=== PATIENT | female | born 1990 | race Caucasian/White ===

== ENCOUNTER 2022-07-27 16:24 | Emergency (ER) | payer MEDICAID, SELFPAY ==
--- NOTE | ~2022-07-27 | CT_ITS ---
EXAMINATION: CT ANGIOGRAM OF THE CHEST WITH AND WITHOUT CONTRAST (CT PULMONARY ANGIOGRAM FOR PE) CLINICAL INFORMATION: Reason for Exam near syncope with hx PE COMPARISON: None TECHNIQUE: Prior to contrast administration, noncontrast localization images were obtained. Subsequently, multidetector volumetric imaging was performed from the thoracic inlet to below the diaphragms following the administration of 65 mL Omnipaque 350 intravenous contrast. No contrast reaction reported Sagittal, coronal, and MIP oblique sagittal reformatted images were obtained on the CT workstation, uploaded to PACS, and reviewed. This CT examination was performed using dose optimization techniques as appropriate, variously including the following: *Automated exposure control *Adjustment of mA and/or kV according to patient size (this includes techniques or standardized protocols for targeted exams where dose is matched to indication/reason for exam; i.e. extremities or head) *Use of iterative reconstruction technique Total exam dose-length product 292 mGy-cm FINDINGS: QUALITY OF STUDY/CONTRAST BOLUS: Satisfactory. PULMONARY ARTERIES: No central or segmental pulmonary emboli. THORACIC AORTA: No aneurysm or dissection. LUNG: Minimal atelectasis is noted in the lingula. Remainder of the lungs are clear. PLEURA: No pleural effusion or pneumothorax. MEDIASTINUM: Visualized portion of the thyroid gland is unremarkable. There are subcentimeter mediastinal lymph nodes within the range of normal variation. Cardiac size is within normal limits; no pericardial effusion. No evidence of septal bowing or right heart strain. CHEST WALL/AXILLA: No axillary or internal mammary lymphadenopathy. OSSEOUS STRUCTURES: No acute or suspicious osseous abnormality. UPPER ABDOMEN: Small hypodensity in the left hepatic lobe favors a cyst. No reflux of contrast into the hepatic veins to suggest elevated right heart pressures. CT/CT angio chest PE protocol IMPRESSION: No pulmonary embolus identified. VTE: negative
[2022-07-27 16:56] VITALS: BP 139/93; PULSE 87; RESP 18; TEMP 36.8; O2SAT 100; BMI 28.6
--- NOTE | 2022-07-27 16:58 | ECG_ITS ---
Test Reason : CHEST PAIN Blood Pressure : / mmHG Vent. Rate : 073 BPM Atrial Rate : 073 BPM P-R Int : 148 ms QRS Dur : 074 ms QT Int : 374 ms P-R-T Axes : 043 013 031 degrees QTc Int : 412 ms Normal sinus rhythm Normal ECG No previous ECGs available Referred By: Generic ED Physician Electronically Signed By:Yaron Eduardo
[2022-07-27 18:59] LABS: MANUAL DIFF FLAG NO
[2022-07-27 19:05] LABS: Basophils Percent Auto 0.2 % (0-2); Eosinophils Absolute Auto 0.1 X10*3/uL (0.0-0.4); Eosinophils Percent Auto 0.5 % (0-4); Hematocrit 43.9 % (37.0-47.0); Hemoglobin 15.2 g/dl (12.0-16.0); Imm Gran Abs Auto 0.05 X10*3/uL (0.00-0.03); Imm Gran Pct Auto 0.4 % (0.0-0.4); Lymphocytes Absolute Auto 4.1 X10*3/uL (1.2-4.9); Lymphocytes Percent Auto 31.4 % (20-40); Mean Corpuscular HGB Conc 34.6 g/dl (31.0-35.0); Mean Corpuscular Hemoglobin 28.9 pg (27.0-33.0); Mean Corpuscular Volume 83.5 fL (80.0-98.0); Mean Platelet Volume 9.7 fL (9.4-12.3); Monocytes Absolute Auto 0.8 X10*3/uL (0.1-1.2); Neutrophils Percent Auto 61.5 % (45-73); Platelet Count 246 X10*3/uL (160-400); Red Blood Count 5.26 X10*6/uL (4.20-5.50); Red Cell Distribution Width 12.3 % (11.0-16.0)
[2022-07-27 19:25] LABS: Alanine Aminotransferase 20 U/L (0-31); Albumin Level 4.1 g/dL (3.5-5.0); Alkaline Phosphatase 87 U/L (39-117); Anion Gap 12 (12-20); Aspartate Amino Transferase 12 U/L (5-31); Bilirubin Total 0.4 mg/dL (0.0-1.0); Blood Urea Nitrogen 7 mg/dL (9-16); Calcium 8.8 mg/dL (8.4-10.2); Carbon Dioxide 28 mmol/L (22-29); Chloride 103 mmol/L (96-108); Estimated Glomerular Filt Rate > 60; Glucose Random 88 mg/dL (60-115); Potassium 3.5 mmol/L (3.3-5.1); Sodium 139 mmol/L (135-145); Total Protein 6.7 g/dL (6.5-8.0)
[2022-07-27 23:25] VITALS: BP 135/83; PULSE 82; RESP 17; TEMP 36.8; O2SAT 98
--- NOTE | 2022-07-27 23:43 | ED.GENADULT ---
HPI - General Adult General Chief complaint: Dyspnea Stated complaint: high blood pressure, disoriented, blood clot? Time Seen by Provider: 07/27/22 23:25 Source: patient and old records reviewed History of Present Illness HPI narrative: Patient sent in from Urgent Care after presenting for near-syncope with dyspnea and headache. Patient has have 1 week worth of flu-like syndrome with fevers chills. Nausea and diarrhea. Positive cough and occasional shortness of breath. She has a history of pulmonary embolism for which she was on blood thinners for 6 months. This was approximately 5 years ago. She is not currently on blood thinners. It is unknown what precipitated her thromboembolism. Family history of thromboembolic disease in her mother. No recent travel or surgeries or injuries. Decreased p.o. intake recently. Taking adequate fluids. But she does have watery diarrhea 3 to 4 times a day. No fevers over the last few days. Related Data Previous Rx's Medication Instructions Recorded ibuprofen 800 mg tablet 800 mg PO TID PRN pain #30 tabs 07/28/22 Allergies Allergy/AdvReac Type Severity Reaction Status Date / Time Penicillins Allergy Unknown Unknown Verified 07/27/22 23:40 Review of Systems Constitutional: Comments: Recent flu-like symptoms over the past 5 days. With fevers, nausea, vomiting, diarrhea. Positive cough Cardiovascular: Comments: No chest pain or palpitations. Near syncope though Respiratory: Comments: Cough and dyspnea today Gastrointestinal: Comments: Nausea vomiting diarrhea. No abdominal pain Musculoskeletal: Comments: No leg swelling or calf tenderness Integumentary/Breasts: Comments: No rash Neurologic: Comments: General malaise and general weakness but no focal weakness Hematologic/Lymphatic: Comments: Past thromboembolic episode with pulmonary embolism in approximately 2018 [facility] Social History Social History Alcohol intake: never Smoked in Last 30 Days: Yes Use of substances other than those prescribed or required for medical reasons: No Advance Directives: No Advance Directives Information Provided: No Patient : No Physical Exam ED Vital Signs: Vital Signs - 24 hr 07/27/22 16:56 07/27/22 23:25 Temperature 98.3 F 98.2 F Pulse Rate 87 82 Respiratory Rate 18 17 Blood Pressure 139/93 H 135/83 Pulse Oximetry 100 98 Oxygen Delivery Method Room Air Room Air BMI result Body Mass Index 28.6 Const Other: Awake and alert in no acute distress with normal stable vital signs, afebrile, oxygen saturation 98% Resp Other: Bilateral expiratory wheezes with fair air entry. Cardio Other: Regular rate and rhythm without murmurs rubs or gallops GI Other: Soft nontender nondistended. Skin Other: Warm pink and dry without rash Neuro Other: No focal weakness Extrem Other: No calf tenderness or pedal edema Course Course Course Narrative: 02:19. Influenza is positive. Symptoms been going on for almost a week. She is not a candidate for Tamiflu. CT angiography shows no evidence of pulmonary embolism. Discharge home conservative therapy Medications Administered Discontinued Medications Generic Name Dose Route Start Last Admin Trade Name Freq PRN Reason Stop Dose Admin Albuterol Sulfate 2.5 mg 07/27/22 23:40 07/28/22 00:16 Albuterol Sulfate (0.083%) 2.5 Mg/3 Ml Vial.Neb INHALE 07/27/22 23:41 2.5 mg ONCE ONE Administration Sodium Chloride 1,000 mls @ 999 mls/hr 07/27/22 23:45 07/28/22 00:01 Ns IV 07/28/22 00:45 999 mls/hr .Q1H1M HEATHER Administration Iohexol 65 ml 07/28/22 01:16 07/28/22 01:17 Iohexol 350 Mg/Ml 100 Ml Infus..Btl IV 07/28/22 01:17 65 ml ONCE ONE Administration Methylprednisolone Sodium Succinate 125 mg 07/27/22 23:40 07/28/22 00:02 Methylprednisolone Sod Succ 125 Mg/2 Ml Vial IVPUSH 07/27/22 23:41 125 mg ONCE ONE Administration Ondansetron HCl 4 mg 07/27/22 23:40 07/28/22 00:02 Ondansetron Hcl 4 Mg/2 Ml Vial IVPUSH 07/27/22 23:41 4 mg ONCE ONE Administration Medical Decision Making Medical Decision Making MDM Narrative: Patient with near syncope and dyspnea with recent flu-like illness. Quite likely dehydration and fluid related. However, she has a past history of pulmonary embolism. She will need a CT angiogram to rule out recurrent PE as she is no longer on anticoagulation. Lab Data Result Diagrams: 07/27/22 18:56 07/27/22 18:56 Labs: Lab Results 07/27/22 07/27/22 07/27/22 Range/Units 18:56 18:56 23:54 WBC 13.0 H (4.8-10.8) X10*3/uL RBC 5.26 (4.20-5.50) X10*6/uL Hgb 15.2 (12.0-16.0) g/dl Hct 43.9 (37.0-47.0) % MCV 83.5 (80.0-98.0) fL MCH 28.9 (27.0-33.0) pg MCHC 34.6 (31.0-35.0) g/dl RDW 12.3 (11.0-16.0) % Plt Count 246 (160-400) X10*3/uL MPV 9.7 (9.4-12.3) fL Immature Gran % (Auto) 0.4 (0.0-0.4) % Neut % (Auto) 61.5 (45-73) % Lymph % (Auto) 31.4 (20-40) % [place] % (Auto) 6.0 (2-11) % Eos % (Auto) 0.5 (0-4) % Baso % (Auto) 0.2 (0-2) % Lymph # (Auto) 4.1 (1.2-4.9) X10*3/uL [place] # (Auto) 0.8 (0.1-1.2) X10*3/uL Eos # (Auto) 0.1 (0.0-0.4) X10*3/uL Baso # (Auto) 0.0 (0.0-0.2) X10*3/uL Abs Immat Gran (auto) 0.05 H (0.00-0.03) X10*3/uL Absolute Neuts (auto) 8.0 (2.0-8.3) x10*3/uL Absolute Nucleated RBC 0.000 (0.0-0.012) X10*3/uL Nucleated RBC % (auto) 0.0 (0.0-0.2) /100WBC PT (10.0-13.1) SEC INR (0.9-1.1) Sodium 139 (135-145) mmol/L Potassium 3.5 (3.3-5.1) mmol/L Chloride 103 (96-108) mmol/L Carbon Dioxide 28 (22-29) mmol/L Anion Gap 12 (12-20) BUN 7 L (9-16) mg/dL Creatinine 0.59 (0.5-1.4) mg/dL Estim Creat Clear Calc 140.0 Estimated GFR > 60 Random Glucose 88 (60-115) mg/dL Calcium 8.8 (8.4-10.2) mg/dL Total Bilirubin 0.4 (0.0-1.0) mg/dL AST 12 (5-31) U/L ALT 20 (0-31) U/L Alkaline Phosphatase 87 (39-117) U/L Total Protein 6.7 (6.5-8.0) g/dL Albumin 4.1 (3.5-5.0) g/dL Influenza Type A (PCR) POSITIVE A (Negative) Influenza Type B (PCR) NEGATIVE (Negative) RSV RNA Qual (PCR) NEGATIVE (Negative) SARS-CoV-2 RNA (RT-PCR) NEGATIVE (Negative) 07/28/22 Range/Units 00:05 WBC (4.8-10.8) X10*3/uL RBC (4.20-5.50) X10*6/uL Hgb (12.0-16.0) g/dl Hct (37.0-47.0) % MCV (80.0-98.0) fL MCH (27.0-33.0) pg MCHC (31.0-35.0) g/dl RDW (11.0-16.0) % Plt Count (160-400) X10*3/uL MPV (9.4-12.3) fL Immature Gran % (Auto) (0.0-0.4) % Neut % (Auto) (45-73) % Lymph % (Auto) (20-40) % [place] % (Auto) (2-11) % Eos % (Auto) (0-4) % Baso % (Auto) (0-2) % Lymph # (Auto) (1.2-4.9) X10*3/uL [place] # (Auto) (0.1-1.2) X10*3/uL Eos # (Auto) (0.0-0.4) X10*3/uL Baso # (Auto) (0.0-0.2) X10*3/uL Abs Immat Gran (auto) (0.00-0.03) X10*3/uL Absolute Neuts (auto) (2.0-8.3) x10*3/uL Absolute Nucleated RBC (0.0-0.012) X10*3/uL Nucleated RBC % (auto) (0.0-0.2) /100WBC PT 11.5 (10.0-13.1) SEC INR 1.0 (0.9-1.1) Sodium (135-145) mmol/L Potassium (3.3-5.1) mmol/L Chloride (96-108) mmol/L Carbon Dioxide (22-29) mmol/L Anion Gap (12-20) BUN (9-16) mg/dL Creatinine (0.5-1.4) mg/dL Estim Creat Clear Calc Estimated GFR Random Glucose (60-115) mg/dL Calcium (8.4-10.2) mg/dL Total Bilirubin (0.0-1.0) mg/dL AST (5-31) U/L ALT (0-31) U/L Alkaline Phosphatase (39-117) U/L Total Protein (6.5-8.0) g/dL Albumin (3.5-5.0) g/dL Influenza Type A (PCR) (Negative) Influenza Type B (PCR) (Negative) RSV RNA Qual (PCR) (Negative) SARS-CoV-2 RNA (RT-PCR) (Negative) Discharge Plan Discharge Clinical Impression: Influenza A Patient Disposition: Home, Self-Care Instructions: Influenza (ED) Prescriptions: New ibuprofen 800 mg tablet 800 mg PO TID PRN (Reason: pain) Qty: 30 0RF
[2022-07-28] MEDS: 0.9 % Sodium Chloride 1,000 ML 999 ML IV (00:01)
[2022-07-28] MEDS: ondansetron HCL 4 MG/2 ML VIAL IVPUSH (00:02)
[2022-07-28] MEDS: methylPREDNISolone Sod Succ 125 MG/2 ML VIAL IVPUSH (00:02)
[2022-07-28 00:15] LABS: Prothrombin Time 11.5 SEC (10.0-13.1)
[2022-07-28] MEDS: Albuterol Sulfate (0.083%) 2.5 MG/3 ML VIAL.NEB INHALE (00:16)
[2022-07-28 00:35] LABS: Influenza A PCR POSITIVE (Negative); Influenza B PCR NEGATIVE (Negative); Resp Syncy Virus RNA Qual PCR NEGATIVE (Negative); SARS COV2 PCR INHOUSE NEGATIVE (Negative)
[2022-07-28] MEDS: iohexoL 350 MG/ML 100 ML INFUS..BTL 65 ML IV (01:17)
== END 2022-07-28 04:05 | disposition home or self-care (01) ==
PROVIDERS: Emergency Provider Emergency Medicine; PCP Family Medicine
DX: J11.1 Influenza due to unidentified influenza virus with other respiratory manifestations (principal); R06.00 Dyspnea, unspecified; Z20.822 Contact with and (suspected) exposure to COVID-19
CPT/HCPCS: 0241U; 36415; 71275; 80053; 85025; 85610; 93005; 96374; 96375; 99285; J2405; J2930; Q9967

== ENCOUNTER 2024-05-30 14:52 | Emergency (ER) | payer MEDICAID, SELFPAY ==
--- NOTE | ~2024-05-30 | XR_ITS ---
EXAMINATION: XR CHEST 2 VIEW CLINICAL INFORMATION: Chest pain COMPARISON: None TECHNIQUE: PA and lateral views of the chest obtained. FINDINGS: The lungs are clear. There are no pleural effusions. The cardiomediastinal silhouette is normal. No rib fracture, bone lesion or pneumothorax is detected. XR/XR chest 2V IMPRESSION: No acute cardiopulmonary disease. Electronically signed by: Rodolfo Oakley MD 05/30/2024 04:15 PM EDT
--- NOTE | 2024-05-30 14:53 | ECG_ITS ---
Test Reason : cp Blood Pressure : / mmHG Vent. Rate : 119 BPM Atrial Rate : 119 BPM P-R Int : 124 ms QRS Dur : 070 ms QT Int : 302 ms P-R-T Axes : 042 001 064 degrees QTc Int : 424 ms Sinus tachycardia Possible Left atrial enlargement Left ventricular hypertrophy with repolarization abnormality ( R in aVL ) Cannot rule out Septal infarct , age undetermined Abnormal ECG When compared with ECG of 27-JUL-2022 18:52, Vent. rate has increased BY 46 BPM Minimal criteria for Septal infarct are now Present Referred By: Generic ED Physician Electronically Signed By:Yaron Eduardo
[2024-05-30 15:01] VITALS: BP 181/100; PULSE 115; RESP 20; TEMP 36.8; O2SAT 98; BMI 32.6
--- NOTE | 2024-05-30 15:01 | ED_ITS ---
HPI - General Adult General Chief complaint: Chest Pain Stated complaint: cp-high bp Time Seen by Provider: 05/30/24 16:14 Source: patient Limitations: no limitations History of Present Illness ED Provider: Carla Cerda PA-C HPI narrative: 34-year-old morbidly obese female with a history of hypertension presents with chest pain x1 day. Patient is having pain within the central chest, described as a squeezing sensation. It is nonradiating and constant. Patient has had similar episodes in the past. Pain worse with palpation of chest wall. 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 Denies associated shortness of breath, diaphoresis or nausea. Denies associated upper abdominal pain, recent cough or cold symptoms, no fevers. Related Data Previous Rx's ?Medication ?Instructions ?Recorded ibuprofen 800 mg tablet 800 mg PO TID PRN pain #30 tabs 07/28/22 Allergies Allergy/AdvReac Type Severity Reaction Status Date / Time Penicillins Allergy Unknown Unknown Verified 05/30/24 15:03 Review of Systems 2 Review of Systems: Yes all other systems are reviewed and are negative Constitutional: Constitutional: Denies fatigue and Denies fever(s) Cardiovascular: Cardiovascular: Reports chest pain and Denies dyspnea Respiratory: Respiratory: Denies cough and Denies dyspnea Gastrointestinal: Gastrointestinal: Denies abdominal pain, Denies nausea and Denies vomiting Endocrine: Endocrine: Denies fatigue PMF Past Medical History Attestation statement: The following information was validated with the patient. Social History Social History Alcohol intake: current Alcohol intake frequency: holidays/special occasions only Substance Use Type: Marijuana Physical Exam ED Vital Signs: Vital Signs - 24 hr 05/30/24 15:01 05/30/24 15:06 Temperature 98.3 F Pulse Rate 115 H Respiratory Rate 20 Blood Pressure 181/100 H 147/86 H Pulse Oximetry 98 Oxygen Delivery Method Room Air BMI result Body Mass Index 32.6 Const Other: Alert, well in appearance Orientation/consciousness: patient oriented x3 Chest Other: Pain elicited with palpation of central chest wall, no overlying deformity or erythema or ecchymosis Resp Other: Nonlabored respiration Cardio Other: Normal peripheral perfusion GI Other: Abdomen is soft, nontender nondistended no guarding Skin Other: Warm dry no rash Neuro General: patient oriented x3, no focal motor deficits and CN's II-XI intact bilaterally Psych Other: Calm cooperative Course Course Course Narrative: This is an RME: Additional HPI, ROS, PE not included below will be deferred to primary provider. RME assessment and note performed by: Bella Burroughs PA-C This is a [id number] who presents to the ER with complaints of chest pain, shakiness and elevated BP readings at home. Pt reporting pain is midsternal. Reporting dizziness at well. Reports yesterday she had chills, lightheadedness. Took tums which provided her with no relief. Has had CP on and off the last year but this has been the worst it has been. BP with smaller cuff was 181/100 > repeat 147/86 with appropriately sized cuff. Plan: Labs, CXR, EKG Medical Decision Making Medical Decision Making MDM Narrative: 34-year-old morbidly obese female with a history of hypertension presents with chest pain x1 day. Patient is having pain within the central chest, described as a squeezing sensation. It is nonradiating and constant. Patient has had similar episodes in the past. Pain worse with palpation of chest wall. 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 Denies associated shortness of breath, diaphoresis or nausea. Denies associated upper abdominal pain, recent cough or cold symptoms, no fevers. Problem: Obesity and hypertension History: Per patient I have considered the following differential diagnoses: ACS, costochondritis, chest wall strain, hypertensive urgency, hypertensive emergency Plan: Patient's exam is consistent with chest wall strain, however she does not have a concise mechanism. She does perform a good deal of heavy lifting at work. Gave her information in regard to using [id number] Tylenol and ibuprofen to manage her discomfort. ACS was considered, the patient does have a few risk factors for coronary artery disease, however this is very atypical for ACS. Screening labs including troponin EKG and chest x-ray were obtained. Thought about costochondritis, however there has been no preceding viral syndrome. Patient also was complaining that her blood pressure has been poorly controlled, however she is yet to follow up with her primary care, she states that she monitors her pressures at home. For us here in the emergency department, she is not hypertensive. She knows she needs to follow up with her primary care provider I have independently reviewed the following tests: Labs: Leukocytosis, not anemic, no electrolyte abnormality, troponin negative EKG: Sinus rhythm, no ischemic changes no ectopy Chest x-ray: No pleural effusion or pulmonary edema no pneumonia. Lab Data 05/30/24 15:16 05/30/24 15:16 Labs: Lab Results 05/30/24 05/30/24 Range/Units 15:16 15:17 WBC 11.7 H (4.8-10.8) X10*3/uL RBC 5.18 (4.20-5.50) X10*6/uL Hgb 15.3 (12.0-16.0) g/dl Hct 43.2 (37.0-47.0) % MCV 83.4 (80.0-98.0) fL MCH 29.5 (27.0-33.0) pg MCHC 35.4 H (31.0-35.0) g/dl RDW 12.5 (11.0-16.0) % Plt Count 291 (160-400) X10*3/uL MPV 9.7 (9.4-12.3) fL Immature Gran % (Auto) 0.4 (0.0-0.4) % Neut % (Auto) 69.8 (45-73) % Lymph % (Auto) 20.9 (20-40) % [place] % (Auto) 6.8 (2-11) % Eos % (Auto) 1.8 (0-4) % Baso % (Auto) 0.3 (0-2) % Lymph # (Auto) 2.5 (1.2-4.9) X10*3/uL [place] # (Auto) 0.8 (0.1-1.2) X10*3/uL Eos # (Auto) 0.2 (0.0-0.4) X10*3/uL Baso # (Auto) 0.0 (0.0-0.2) X10*3/uL Abs Immat Gran (auto) 0.05 H (0.00-0.03) X10*3/uL Absolute Neuts (auto) 8.2 (2.0-8.3) x10*3/uL Absolute Nucleated RBC 0.000 (0.0-0.012) X10*3/uL Nucleated RBC % (auto) 0.0 (0.0-0.2) /100WBC PT 11.2 (10.9-12.4) SEC INR 1.0 (0.9-1.1) Sodium 139 (135-145) mmol/L Potassium 3.6 (3.3-5.1) mmol/L Chloride 107 (96-108) mmol/L Carbon Dioxide 26 (22-29) mmol/L Anion Gap 10 L (12-20) BUN 8 L (9-16) mg/dL Creatinine 0.64 (0.5-1.4) mg/dL Estim Creat Clear Calc 135.0 Estimated GFR > 60 Random Glucose 116 H (60-115) mg/dL Calcium 9.7 D (8.4-10.2) mg/dL Magnesium 1.8 (1.6-2.6) mg/dL Total Bilirubin 0.3 (0.0-1.0) mg/dL Direct Bilirubin 0.1 (0.0-0.5) mg/dL AST 16 (5-31) U/L ALT 15 (0-31) U/L Alkaline Phosphatase 114 (39-117) U/L Troponin I High Sens < 2.7 (<3.5-17.0) ng/L Total Protein 7.3 (6.5-8.0) g/dL Albumin 3.9 (3.5-5.0) g/dL Lipase 28 (8-78) U/L TSH 1.31 (0.32-4.0) uIU/mL Influenza Type A (PCR) NEGATIVE (Negative) Influenza Type B (PCR) NEGATIVE (Negative) RSV RNA Qual (PCR) NEGATIVE (Negative) SARS-CoV-2 RNA (RT-PCR) NEGATIVE (Negative) Discharge Plan Discharge Clinical Impression: Chest wall pain Patient Disposition: Home, Self-Care Instructions: Chest Wall Pain (ED) Additional Instructions: Your exam was consistent with chest wall pain/strain. See home care instructions. You can use [id number] ibuprofen 600 mg taken every 6 hours with food, alternated with the use of [id number] Tylenol 1000 mg taken every 8 hours. All of your labs were normal including a cardiac enzyme which was negative. There were no concerning changes on her EKG in your chest x-ray was clear. You need to follow up with your primary care in regard to blood pressure management. In the emergency department, your blood pressure has not been elevated. Prescriptions: No Action ibuprofen 800 mg tablet 800 mg PO TID PRN (Reason: pain) Qty: 30 0RF Stand Alone Forms: Work/School Release Print Language: Samoan
[2024-05-30 15:06] VITALS: BP 147/86
[2024-05-30 15:23] LABS: MANUAL DIFF FLAG NO
[2024-05-30 15:26] LABS: Basophils Percent Auto 0.3 % (0-2); Eosinophils Absolute Auto 0.2 X10*3/uL (0.0-0.4); Eosinophils Percent Auto 1.8 % (0-4); Hematocrit 43.2 % (37.0-47.0); Hemoglobin 15.3 g/dl (12.0-16.0); Imm Gran Abs Auto 0.05 X10*3/uL (0.00-0.03); Imm Gran Pct Auto 0.4 % (0.0-0.4); Lymphocytes Absolute Auto 2.5 X10*3/uL (1.2-4.9); Lymphocytes Percent Auto 20.9 % (20-40); Mean Corpuscular HGB Conc 35.4 g/dl (31.0-35.0); Mean Corpuscular Hemoglobin 29.5 pg (27.0-33.0); Mean Corpuscular Volume 83.4 fL (80.0-98.0); Mean Platelet Volume 9.7 fL (9.4-12.3); Monocytes Absolute Auto 0.8 X10*3/uL (0.1-1.2); Monocytes Percent Auto 6.8 % (2-11); Neutrophils Absolute Auto 8.2 x10*3/uL (2.0-8.3); Neutrophils Percent Auto 69.8 % (45-73); Platelet Count 291 X10*3/uL (160-400); Red Blood Count 5.18 X10*6/uL (4.20-5.50); Red Cell Distribution Width 12.5 % (11.0-16.0); White Blood Count 11.7 X10*3/uL (4.8-10.8)
[2024-05-30 15:31] LABS: Prothrombin Time 11.2 SEC (10.9-12.4)
[2024-05-30 15:51] LABS: Troponin-I High Sensitivity < 2.7 ng/L (<3.5-17.0)
[2024-05-30 15:56] LABS: Alanine Aminotransferase 15 U/L (0-31); Albumin Level 3.9 g/dL (3.5-5.0); Alkaline Phosphatase 114 U/L (39-117); Anion Gap 10 (12-20); Aspartate Amino Transferase 16 U/L (5-31); Bilirubin Direct 0.1 mg/dL (0.0-0.5); Blood Urea Nitrogen 8 mg/dL (9-16); Calcium 9.7 mg/dL (8.4-10.2); Carbon Dioxide 26 mmol/L (22-29); Chloride 107 mmol/L (96-108); Estimated Glomerular Filt Rate > 60; Glucose Random 116 mg/dL (60-115); Lipase 28 U/L (8-78); Magnesium 1.8 mg/dL (1.6-2.6); Potassium 3.6 mmol/L (3.3-5.1); Sodium 139 mmol/L (135-145); Total Protein 7.3 g/dL (6.5-8.0)
[2024-05-30 16:02] LABS: Influenza A PCR NEGATIVE (Negative); Influenza B PCR NEGATIVE (Negative); Resp Syncy Virus RNA Qual PCR NEGATIVE (Negative); SARS COV2 PCR INHOUSE NEGATIVE (Negative)
[2024-05-30 16:03] LABS: Bilirubin Total 0.3 mg/dL (0.0-1.0); TSH reflex Free T4 1.31 uIU/mL (0.32-4.0)
[2024-05-30 16:37] VITALS: BP 137/85; PULSE 93; RESP 18; O2SAT 97
[2024-05-30 16:45] VITALS: BP 137/85; PULSE 98; RESP 18; TEMP 36.6; O2SAT 98
== END 2024-05-30 16:45 | disposition home or self-care (01) ==
PROVIDERS: Physician Assistant Medical; Emergency Provider Student in an Organized Health Care Education/Training Program
DX: R07.89 Other chest pain (principal); R06.02 Shortness of breath; I10 Essential (primary) hypertension; Z03.818 Encounter for observation for suspected exposure to other biological agents ruled out
CPT/HCPCS: 0241U; 36415; 71046; 80048; 80076; 83690; 83735; 84443; 84484; 85025; 85610; 93005; 99283; 99285

== ENCOUNTER → 2024-05-30 14:53 | Outpatient (BNV) | payer MEDICAID, SELFPAY | PROVIDERS: Emergency Provider Student in an Organized Health Care Education/Training Program; Visit Provider Internal Medicine Cardiovascular Disease | DX: R94.31 Abnormal electrocardiogram [ECG] [EKG] (principal) | CPT/HCPCS: 93010 ==